=== PATIENT | female | born 1950 | race Caucasian/White ===

== ENCOUNTER 2021-05-13 14:48 | Emergency (ER) | payer OTHER, SELFPAY ==
[~2021-05-13] VITALS: Ht 160 cm; Wt 97.9 kg
[2021-05-13 14:48] VITALS: BP 158/86
[2021-05-13] MEDS ORDERED: SIMV20TA22 (15:18)
[2021-05-13] MEDS ORDERED: AMLO1TAB24 (15:18)
[2021-05-13] MEDS ORDERED: IBUP-1114 PO (15:18)
[2021-05-13] MEDS ORDERED: LOSA50TA88 (15:18)
== END 2021-05-13 16:45 | disposition left against medical advice (07) ==
LOC: M ED 14:48
DX: Z53.21 Procedure and treatment not carried out due to patient leaving prior to being seen by health care provider (principal)